=== PATIENT | male | born 1955 | race Caucasian/White ===

== ENCOUNTER 2025-05-22 15:38 | Emergency (ER) | payer MEDICARE, OTHER ==
[2025-05-22] MEDS ORDERED: Aspirin 325 MG Tab.EC PO ONE (16:17)
[2025-05-22] MEDS ORDERED: Naloxone 0.4 MG/ML SDV IVPUSH PRN (16:17)
[2025-05-22 16:28] LABS: BASOPHILS ABSOLUTE AUTO 0.05 K/uL (0.00-0.10); BASOPHILS PERCENT AUTO 0.4 % (0.1-1.3); EOSINOPHILS ABSOLUTE AUTO 0.10 K/uL (0.00-0.40); EOSINOPHILS PERCENT AUTO 0.8 % (0.0-5.4); IMMATURE GRAN PERCENT AUTO 0.2 % (0.0-0.7); LYMPHOCYTES ABSOLUTE AUTO 1.82 K/uL (0.8-3.3); LYMPHOCYTES PERCENT AUTO 15.2 % (11.4-47.7); MONOCYTES ABSOLUTE AUTO 1.10 K/uL (0.20-0.90); MONOCYTES PERCENT AUTO 9.2 % (3.3-12.6); NEUTROPHILS ABSOLUTE AUTO 8.86 K/uL (1.0-7.6); NEUTROPHILS PERCENT AUTO 74.2 % (40.0-78.1); PLATELET COUNT,PLT 216 K/uL (130-375); RED BLOOD CELL COUNT 5.25 M/uL (4.14-5.76); WHITE BLOOD CELL COUNT,WBC 12.0 K/uL (3.2-11.0)
[2025-05-22] MEDS: Nitroglycerin 0.4 MG Tab.SL SL PRN (16:31)
[2025-05-22 16:36] LABS: IMMATURE GRAN ABSOLUTE AUTO 0.02 K/uL (0.00-0.23)
[2025-05-22 16:37] LABS: INR 1.0; PTT,PARTIAL THROMBOPLSTIN TIME 27.4 sec (21.8-27.3)
[2025-05-22 16:43] LABS: TROPONIN I HIGH SENSITIVITY 7.3 pg/mL (<=60.3)
[2025-05-22 16:59] LABS: A/G RATIO 1.0 (1.2-2.2); ALANINE AMINOTRANSFERASE,ALT 26 U/L (12-78); ASPARTATE AMNIOTRANSFERASE,AST 30 U/L (15-37); BILIRUBIN TOTAL 1.7 mg/dL (0.2-1.0); BLOOD UREA NITROGEN,BUN 11 mg/dL (7-18); CARBON DIOXIDE,CO2 28 mmol/L (21-32); CHLORIDE,CL 98 mmol/L (100-108); CREATININE 0.9 mg/dL (0.8-1.3); EST CRCL DRUG DOSING (CG) 78.03 mL/min; ESTIMATED GFR 92 mL/min (>60); GLUCOSE RANDOM 122 mg/dL (74-106); POTASSIUM,K 4.3 mmol/L (3.6-5.2); PROTEIN TOTAL,TP 7.2 g/dL (6.4-8.2); SODIUM,NA 134 mmol/L (140-148)
[2025-05-22 17:32] LABS: APPEARANCE,URINE CLEAR (CLEAR); GLUCOSE,URINE NEGATIVE (NEGATIVE); OCCULT BLOOD,URINE NEGATIVE (NEGATIVE)
[2025-05-22 17:47] LABS: AMPHETAMINES SCREEN, URINE NEGATIVE (NEGATIVE); METHADONE SCREEN, URINE NEGATIVE (NEGATIVE); METHAMPHETAMINES SCREEN, URINE NEGATIVE (NEGATIVE); OXYCODONE SCREEN,URINE NEGATIVE (NEGATIVE); PROPOXYPHENE SCREEN,URINE NEGATIVE (NEGATIVE); SQUAMOUS EPITHELIAL CELLS,UR RARE /HPF; UROTHELIAL CELLS,URINE NOT SEEN /HPF
[2025-05-22 17:48] LABS: THC SCREEN,URINE 50 NG/ML PRESUMPTIVE POSITIVE (NEGATIVE)
[2025-05-22] MEDS: Sodium Chloride 0.9% 10 ML Syringe FLUSH ONE (17:52)
[2025-05-22] MEDS: Iopamidol 755 Mg/ML 100 ML Bottle IV ONE (17:52)
[2025-05-22] MEDS: fentaNYL 100 MCG/2 ML SDV IVPUSH ONE (19:41)
== END 2025-05-22 20:46 ==
LOC: JP.ED 15:38
DX: R07.9 Chest pain, unspecified (principal); I10 Essential (primary) hypertension; Z79.899 Other long term (current) drug therapy; Z87.891 Personal history of nicotine dependence
CPT/HCPCS: 36415; 71045; 71275; 80053; 80305; 81001; 83735; 84484; 85025; 85379; 85610; 85730; 86140; 93005; 93010; 96361; 96374; 99285; A9270; J3010; J7030; Q9967